=== PATIENT | male | born 1965 | race American Indian/Alaskan Native ===

== ENCOUNTER 2019-05-12 04:22 | Emergency (ER) | payer SELFPAY ==
[2019-05-12 06:38] LABS: Bilirubin,Urine NEG (Negative); Blood,Urine NEG (Negative); Color,Urine Yellow (Yellow); Protein,Urine <15 mg/dL mg/dL (Negative); Urobilinogen,Urine < 2.0 mg/dL (<2.0)
[2019-05-12] MEDS ORDERED: LIDOCAINE VISCOUS 2% 15 ML ORAL LIQD PO ONE (07:09)
[2019-05-12] MEDS ORDERED: ALUM-MAG HYDROXIDE-SIMETHICONE 200-200-20MG/5ML ORAL LIQD 30 ML PO ONE (07:09)
[2019-05-12] MEDS ORDERED: DICYCLOMINE 20 MG TAB PO ONE (07:10)
[2019-05-12 07:31] LABS: Basophils % (Auto) 0.2 % (0.0-1.8); Eosinophils # (Auto) 0.1 K/mm3 (0.0-0.4); Eosinophils % (Auto) 1.3 % (0.0-4.3); Hematocrit 40.8 % (35.5-45.6); Hemoglobin 13.9 gm/dl (11.8-15.2); Lymphocytes # (Auto) 1.8 K/mm3 (1.2-5.4); Lymphocytes % (Auto) 22.2 % (13.4-35.0); Mean Corpuscular HGB Conc 34 % (32-34); Mean Corpuscular Volume 85 fl (84-94); Monocytes # (Auto) 0.9 K/mm3 (0.0-0.8); Monocytes % (Auto) 11.5 % (0.0-7.3); Platelet Count 141 K/mm3 (140-440); Red Blood Count 4.78 M/mm3 (3.65-5.03)
[2019-05-12 07:56] LABS: Alanine Aminotransferase 22 units/L (7-56); BUN/Creatinine Ratio 13; Blood Urea Nitrogen 16 mg/dL (9-20); Calcium 9.2 mg/dL (8.4-10.2); Hemolysis Index 8
--- NOTE | 2019-05-12 08:14 | Emergency Department Report ---
ED Abdominal Pain HPI - General Chief Complaint: Abdominal Pain Stated Complaint: ABD PAIN Time Seen by Provider: 05/12/19 07:02 Source: patient Mode of arrival: Ambulatory Limitations: No Limitations - History of Present Illness Initial Comments: pt is a 54-year-old male presents emergency room with complaints of upper abdominal pain that began 2 days ago. He denies any nausea, vomiting, diarrhea, fever, urinary symptoms, any other symptoms. he states initially he just thought it was "gas." Pt states he did have some constipation which improved after taking over the counter medications and he was able to have a normal BM without difficulty. He states he has never had this in the past. He denies any past medical history or allergies medications. He states he has a nonsmoker and nondrinker. - Related Data Home Medications Medication Instructions Recorded Confirmed Last Taken Multivitamin [Multi-Vitamin Daily] 1 tab PO DAILY 09/03/14 09/03/14 1 Day Ago ~09/02/14 Previous Rx's Medication Instructions Recorded Last Taken Type Acetaminophen/Codeine [Tylenol #3] 1 tab PO Q6H PRN #20 tab 08/20/14 1 Day Ago Rx ~09/02/14 Famotidine [Pepcid] 40 mg PO QHS #30 tablet 05/12/19 Unknown Rx Sucralfate [Carafate] 1 gm PO ACHS 7 Days #21 tablet 05/12/19 Unknown Rx traMADoL [Ultram 50 MG tab] 50 mg PO Q6HR PRN #10 tablet 05/12/19 Unknown Rx Allergies Allergy/AdvReac Type Severity Reaction Status Date / Time No Known Allergies Allergy Verified 08/20/14 16:04 ED Review of Systems ROS: Stated complaint: ABD PAIN Other details as noted in HPI Comment: All other systems reviewed and negative ED Past Medical Hx - Past Medical History Previous Medical History?: No - Surgical History Past Surgical History?: No Additional Surgical History: knee and wrist surgery - Social History Smoking Status: Former Smoker Substance Use Type: None - Medications Home Medications: Home Medications Medication Instructions Recorded Confirmed Last Taken Type Acetaminophen/Codeine [Tylenol #3] 1 tab PO Q6H PRN #20 tab 08/20/14 09/03/14 1 Day Ago Rx ~09/02/14 Multivitamin [Multi-Vitamin Daily] 1 tab PO DAILY 04/16/15 04/16/15 1 Day Ago History ~09/02/14 Famotidine [Pepcid] 40 mg PO QHS #30 tablet 05/12/19 Unknown Rx Sucralfate [Carafate] 1 gm PO ACHS 7 Days #21 tablet 05/12/19 Unknown Rx traMADoL [Ultram 50 MG tab] 50 mg PO Q6HR PRN #10 tablet 05/12/19 Unknown Rx ED Physical Exam - General Limitations: No Limitations General appearance: alert, in no apparent distress - Head Head exam: Present: atraumatic, normocephalic - Eye Eye exam: Present: normal appearance - ENT ENT exam: Present: mucous membranes moist - Respiratory Respiratory exam: Present: normal lung sounds bilaterally. Absent: respiratory distress, wheezes, rales, rhonchi, stridor, chest wall tenderness, accessory muscle use, decreased breath sounds, prolonged expiratory - Cardiovascular Cardiovascular Exam: Present: regular rate, normal rhythm, normal heart sounds. Absent: systolic murmur, diastolic murmur, rubs, gallop - GI/Abdominal GI/Abdominal exam: Present: soft, tenderness (RUQ), normal bowel sounds. Absent: distended, guarding, rebound, rigid - Neurological Exam Neurological exam: Present: alert, oriented X3 - Psychiatric Psychiatric exam: Present: normal affect, normal mood - Skin Skin exam: Present: warm, dry, intact ED Course Vital Signs 05/12/19 05/12/19 04:25 09:01 Temperature 99.2 F 97.9 F Pulse Rate 82 63 Respiratory 18 16 Rate Blood Pressure 136/98 Blood Pressure 149/92 [Right] O2 Sat by Pulse 97 98 Oximetry ED Medical Decision Making - Lab Data Result diagrams: 05/12/19 07:12 05/12/19 07:12 Lab Results 05/12/19 05/12/19 05/12/19 Range/Units 05:53 07:12 07:12 WBC 7.9 (4.5-11.0) K/mm3 RBC 4.78 (3.65-5.03) M/mm3 Hgb 13.9 (11.8-15.2) gm/dl Hct 40.8 (35.5-45.6) % MCV 85 (84-94) fl MCH 29 (28-32) pg MCHC 34 (32-34) % RDW 14.0 (13.2-15.2) % Plt Count 141 (140-440) K/mm3 Lymph % (Auto) 22.2 (13.4-35.0) % Saunders % (Auto) 11.5 H (0.0-7.3) % Eos % (Auto) 1.3 (0.0-4.3) % Baso % (Auto) 0.2 (0.0-1.8) % Lymph # 1.8 (1.2-5.4) K/mm3 Saunders # 0.9 H (0.0-0.8) K/mm3 Eos # 0.1 (0.0-0.4) K/mm3 Baso # 0.0 (0.0-0.1) K/mm3 Seg Neutrophils % 64.8 (40.0-70.0) % Seg Neutrophils # 5.1 (1.8-7.7) K/mm3 Sodium 142 (137-145) mmol/L Potassium 4.4 (3.6-5.0) mmol/L Chloride 105.9 (98-107) mmol/L Carbon Dioxide 21 L (22-30) mmol/L Anion Gap 20 mmol/L BUN 16 (9-20) mg/dL Creatinine 1.2 (0.8-1.5) mg/dL Estimated GFR > 60 ml/min BUN/Creatinine Ratio 13 % Glucose 105 H (75-100) mg/dL Calcium 9.2 (8.4-10.2) mg/dL Total Bilirubin 0.30 (0.1-1.2) mg/dL AST 22 (5-40) units/L ALT 22 (7-56) units/L Alkaline Phosphatase 76 (35-129) units/L Total Protein 7.1 (6.3-8.2) g/dL Albumin 4.0 (3.9-5) g/dL Albumin/Globulin Ratio 1.3 % Lipase 40 (13-60) units/L Urine Color Yellow (Yellow) Urine Turbidity Clear (Clear) Urine pH 5.0 (5.0-7.0) Ur Specific [place] 1.025 (1.003-1.030) Urine Protein <15 mg/dl (Negative) mg/dL Urine Glucose (UA) Neg (Negative) mg/dL Urine Ketones Neg (Negative) mg/dL Urine Blood Neg (Negative) Urine Nitrite Neg (Negative) Urine Bilirubin Neg (Negative) Urine Urobilinogen < 2.0 (<2.0) mg/dL Ur Leukocyte Esterase Neg (Negative) Urine WBC (Auto) 5.0 (0.0-6.0) /HPF Urine RBC (Auto) 6.0 (0.0-6.0) /HPF - Radiology Data Radiology results: report reviewed RUQ US: large fatty liver, suspect mild sludge - Medical Decision Making pt is a 54-year-old male presents emergency room with complaints of upper abdominal pain that began 2 days ago. He denies any nausea, vomiting, diarrhea, fever, urinary symptoms, any other symptoms. he states initially he just thought it was "gas." Pt states he did have some constipation which improved after taking over the counter medications and he was able to have a normal BM without difficulty. He states he has never had this in the past. He denies any past medical history or allergies medications. He states he has a nonsmoker and nondrinker. VSS. on exam: RUQ TTP, no guarding no rebound. labs are normal. UA WNL. US RUQ: large fatty liver, suspect mild sludge. pt given a GI cocktail with some improvement of his symptoms. Discussed findings with patient and advised patient to be seen by a GI doctor. Patient given prescription for Carafate, Pepcid, tramadol. advised pt to please take medication as prescribed as needed. Do not drive or operate heavy machinery while taking pain medicati on. Follow up with a primary care doctor and a GI doctor in the next 2-3 days. Return to the emergency room for any new or worsening symptoms. - Differential Diagnosis PUD, GERD, cholecystitis, cholelithiasis, pancreatitis, hepatitis Critical care attestation.: If time is entered above; I have spent that time in minutes in the direct care of this critically ill patient, excluding procedure time. ED Disposition Clinical Impression: Upper abdominal pain, Fatty infiltration of liver, Gallbladder sludge Disposition: - TO HOME OR SELFCARE Is pt being admited?: No Does the pt Need Aspirin: No Condition: Stable Instructions: Non-Alcoholic Fatty Liver Disease (ED), Abdominal Pain (ED) Additional Instructions: please take medication as prescribed as needed. Do not drive or operate heavy machinery while taking pain medication. Follow up with a primary care doctor and a GI doctor in the next 2-3 days. Return to the emergency room for any new or worsening symptoms. Prescriptions: Famotidine [Pepcid] 40 mg PO QHS #30 tablet Sucralfate [Carafate] 1 gm PO ACHS 7 Days #21 tablet traMADoL [Ultram 50 MG tab] 50 mg PO Q6HR PRN #10 tablet PRN Reason: Pain , Severe (7-10) Referrals: HARVEY ARAIZA MD [Staff Physician] - 2-3 Days [facility] [Provider Group] - 2-3 Days Time of Disposition: 08:50 Print Language: NAMIBIAN
--- NOTE | 2019-05-12 08:29 | Ultrasound Report ---
ULTRASOUND ABDOMEN, LIMITED (RIGHT UPPER QUADRANT) INDICATION: RUQ pain. COMPARISON: None available. FINDINGS: Pancreas: Visualized portion shows no significant abnormality. Liver: Mild increased echogenicity. Size increased measuring 17.5 cm. Gallbladder: Possible mild sludge. No stones or wall thickening. Bile ducts: Normal. Common Bile Duct measures 5.3 mm. Free fluid: None. Additional Findings: None. IMPRESSION: 1. Large fatty liver. 2. Suspect mild sludge. Signer Name: Rosales Lee MD Signed: 05/12/2019 8:24 AM Workstation Name: [id number]
[2019-05-12 09:01] VITALS: BP 149/92
== END 2019-05-12 09:01 | disposition home or self-care (01) ==
LOC: ED 04:22
DX: K76.0 Fatty (change of) liver, not elsewhere classified (principal); Z87.891 Personal history of nicotine dependence; Z98.890 Other specified postprocedural states; Z79.899 Other long term (current) drug therapy
CPT/HCPCS: 36415; 76705; 80053; 81001; 83690; 85025

== ENCOUNTER 2020-06-02 07:46 | Emergency (ER) | payer OTHER ==
[2020-06-02 07:55] VITALS: BP 129/73
--- NOTE | 2020-06-02 08:11 | Emergency Department Report ---
ED General Adult HPI - General Chief complaint: Extremity Injury, Lower Stated complaint: LT UPPER THIGH PAIN Time Seen by Provider: 06/02/20 08:00 Source: patient Mode of arrival: Ambulatory Limitations: No Limitations - History of Present Illness Initial comments: 55-year-old -[place] male patient presents with complaints of right foot pain and left hip/thigh pain x2 weeks. He denies any injuries, fever/chills/sweats, numbness/tingling, or difficulty moving his leg or foot or hip. Patient rates his pain as a 7/10 in severity and denies trying any OTC medications. 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 No history of DVT/PE or leg swelling per patient. Patient also denies shortness of breath or chest pain. - Related Data Home Medications Medication Instructions Recorded Confirmed Last Taken Multivitamin [Multi-Vitamin Daily] 1 tab PO DAILY 09/03/14 09/03/14 1 Day Ago ~09/02/14 Previous Rx's Medication Instructions Recorded Last Taken Type Acetaminophen/Codeine [Tylenol #3] 1 tab PO Q6H PRN #20 tab 08/20/14 1 Day Ago Rx ~09/02/14 Famotidine [Pepcid] 40 mg PO QHS #30 tablet 05/12/19 Unknown Rx Sucralfate [Carafate] 1 gm PO ACHS 7 Days #21 tablet 05/12/19 Unknown Rx traMADoL [Ultram 50 MG tab] 50 mg PO Q6HR PRN #10 tablet 05/12/19 Unknown Rx Naproxen 500 mg PO BID PRN #14 tablet 06/02/20 Unknown Rx Allergies Allergy/AdvReac Type Severity Reaction Status Date / Time No Known Allergies Allergy Verified 08/20/14 16:04 ED Review of Systems ROS: Stated complaint: LT UPPER THIGH PAIN Other details as noted in HPI Constitutional: denies: chills, fever, malaise Respiratory: denies: cough, shortness of breath Cardiovascular: denies: chest pain Gastrointestinal: denies: vomiting Musculoskeletal: arthralgia. denies: joint swelling Skin: denies: rash, lesions, change in color Neurological: denies: numbness, paresthesias, abnormal gait ED Past Medical Hx - Past Medical History Previous Medical History?: No - Surgical History Past Surgical History?: Yes Additional Surgical History: knee and wrist surgery - Social History Smoking Status: Never Smoker - Medications Home Medications: Home Medications Medication Instructions Recorded Confirmed Last Taken Type Acetaminophen/Codeine [Tylenol #3] 1 tab PO Q6H PRN #20 tab 08/20/14 09/03/14 1 Day Ago Rx ~09/02/14 Multivitamin [Multi-Vitamin Daily] 1 tab PO DAILY 09/03/14 09/03/14 1 Day Ago History ~09/02/14 Famotidine [Pepcid] 40 mg PO QHS #30 tablet 05/12/19 Unknown Rx Sucralfate [Carafate] 1 gm PO ACHS 7 Days #21 tablet 05/12/19 Unknown Rx traMADoL [Ultram 50 MG tab] 50 mg PO Q6HR PRN #10 tablet 05/12/19 Unknown Rx Naproxen 500 mg PO BID PRN #14 tablet 06/02/20 Unknown Rx ED Physical Exam - General Limitations: No Limitations - Eye Eye exam: Present: normal appearance - ENT ENT exam: Present: mucous membranes moist - Neck Neck exam: Present: normal inspection - Respiratory Respiratory exam: Present: normal lung sounds bilaterally. Absent: respiratory distress - Cardiovascular Cardiovascular Exam: Present: regular rate, normal rhythm. Absent: systolic murmur, diastolic murmur, rubs, gallop - GI/Abdominal GI/Abdominal exam: Absent: tenderness - Extremities Exam Extremities exam: Present: normal inspection, other (Tenderness to palpation noted over the left lateral upper thigh/hip area; left hip range of motion is normal; no palpable deformities noted; tenderness to palpation also noted over right lateral ankle without swelling or obvious deformity or skin changes noted). Absent: joint swelling, calf tenderness - Back Exam Back exam: Present: normal inspection - Neurological Exam Neurological exam: Present: alert, oriented X3, normal gait. Absent: motor sensory deficit - Psychiatric Psychiatric exam: Present: normal affect, normal mood - Skin Skin exam: Present: warm, dry, intact, normal color. Absent: rash ED Course Vital Signs 06/02/20 07:52 Temperature 97.9 F Pulse Rate 60 Respiratory 18 Rate Blood Pressure 129/73 O2 Sat by Pulse 100 Oximetry ED Medical Decision Making - Radiology Data Radiology results: report reviewed RIGHT ANKLE 3 VIEWS INDICATION: lateral pain, no injury. COMPARISON: None. IMPRESSION: No acute osseous or soft tissue abnormality. Mild to moderate osteoarthritic changes are noted at the tibiotalar joint. LEFT HIP 2 VIEWS INDICATION: Pain, no injury. COMPARISON: None. IMPRESSION: No acute osseous or soft tissue abnormality. Mild osteoarthritic changes are identified. RIGHT ANKLE 3 VIEWS INDICATION: lateral pain, no injury. COMPARISON: None. IMPRESSION: No acute osseous or soft tissue abnormality. Mild to moderate osteoarthritic changes are noted at the tibiotalar joint. LEFT HIP 2 VIEWS INDICATION: Pain, no injury. COMPARISON: None. IMPRESSION: No acute osseous or soft tissue abnormality. Mild osteoarthritic changes are identified. LEFT LOWER EXTREMITY VENOUS DOPPLER ULTRASOUND HISTORY: pain in upper thigh COMPARISON: None. TECHNIQUE: Grayscale, color and spectral Doppler imaging of the venous system of the left lower extremity was performed. FINDINGS: Greater saphenous vein: Normal venous flow, compressibility and augmentation. Sapheno-femoral Junction: Normal venous flow, compressibility and augmentation. Common Femoral Vein: Normal venous flow, compressibility and augmentation. Femoral Vein: Normal venous flow, compressibility and augmentation. Profunda Femoral Vein: Normal venous flow, compressibility and augmentation. Popliteal Vein: Normal venous flow, compressibility and augmentation. Posterior tibial vein: Normal venous flow, compressibility and augmentation. Additional Findings: None. IMPRESSION: No sonographic evidence of acute or chronic DVT or SVT within the left lower extremity. - Medical Decision Making 55-year-old -[place] male patient presents with complaints of right foot pain and left hip/thigh pain x2 weeks. He denies any injuries, fev er/chills/sweats, numbness/tingling, or difficulty moving his leg or foot or hip. Patient rates his pain as a 7/10 in severity and denies trying any OTC medications. 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 No history of DVT/PE or leg swelling per patient. Patient also denies shortness of breath or chest pain. No bony abnormalities noted of the ankle or hip on x-ray. Ultrasound is negative for any DVT. Upon further questioning, patient admits to recently starting working out via squatting and running. Symptoms likely due to muscle strain. Recommend icing and anti-inflammatories. Patient to follow-up with primary care in 3 to 5 days. His vitals are WNL, he is well-appearing, he is stable for discharge home. Strict return precautions were discussed in detail with patient who verbalizes understanding. Critical care attestation.: If time is entered above; I have spent that time in minutes in the direct care of this critically ill patient, excluding procedure time. ED Disposition Clinical Impression: Hip pain, left, Acute pain of right foot Disposition: TO HOME OR SELFCARE Is pt being admited?: No Condition: Stable Instructions: Hip Pain, Foot Pain Prescriptions: Naproxen 500 mg PO BID PRN #14 tablet PRN Reason: pain Referrals: [facility] [Provider Group] - 3-5 Days
--- NOTE | 2020-06-02 08:53 | XRay Report ---
RIGHT ANKLE 3 VIEWS INDICATION: lateral pain, no injury. COMPARISON: None. IMPRESSION: No acute osseous or soft tissue abnormality. Mild to moderate osteoarthritic changes are noted at the tibiotalar joint. LEFT HIP 2 VIEWS INDICATION: Pain, no injury. COMPARISON: None. IMPRESSION: No acute osseous or soft tissue abnormality. Mild osteoarthritic changes are identifi ed. Signer Name: Tom Rogers Jr, MD Signed: 06/02/2020 8:49 AM Workstation Name: [id number]
--- NOTE | 2020-06-02 10:12 | Vascular Lab Report ---
LEFT LOWER EXTREMITY VENOUS DOPPLER ULTRASOUND HISTORY: pain in upper thigh COMPARISON: None. TECHNIQUE: Grayscale, color and spectral Doppler imaging of the venous system of the left lower extre mity was performed. FINDINGS: Greater saphenous vein: Normal venous flow, compressibility and augmentation. Sapheno-femoral Junction: Normal venous flow, compressibility and augmentation. Common Femoral Vein: Normal venous flow, compressibility and augmentation. Femoral Vein: Normal venous flow, compressibility and augmentation. Profunda Femoral Vein: Normal venous flow, compressibility and augmentation. Popliteal Vein: Normal venous flow, compressibility and augmentation. Posterior tibial vein: Normal venous flow, compressibility and augmentation. Additional Findings: None. IMPRESSION: No sonographic evidence of acute or chronic DVT or SVT within the left lower extremity. Signer Name: Juan Carlos Conn MD Signed: 06/02/2020 10:08 AM Workstation Name: [id number]
== END 2020-06-02 13:52 | disposition home or self-care (01) ==
LOC: ED 07:46
DX: M25.552 Pain in left hip (principal); M79.671 Pain in right foot; Z79.899 Other long term (current) drug therapy
CPT/HCPCS: 99283